=== PATIENT | female | born 1990 | race Caucasian/White ===

== ENCOUNTER 2017-05-31 21:31 | Emergency (ER) | payer BC ==
[~2017-05-31] VITALS: Ht 162.6 cm; Wt 73.2 kg
[~2017-05-31 21:31] MED LIST: AMOXICILLIN875 MG PO; ATARAX,VISTARIL25 MG PO; AZITHROMYCIN500 M1 PO; ENDOCET 5-3251 EACH PO; FLEXERIL10 MG PO; FLINTSTONES COM18 MG PO; IBUPROFEN800 MG PO; LEVAQUIN500 MG PO; LORTAB 5-500 T1 EACH PO; MACROBID100 MG PO; MUCINEX600 MG PO; Motrin PO; NOHOMEMEDS; PERCOCET 5/31 TABLET PO; SPRINTEC1 EACH PO; ZANTAC150 MG PO; ZOFRAN4 MG PO
[2017-05-31] MEDS ORDERED: NO HOME MEDS (23:54)
[2017-06-01] MEDS ORDERED: KEFLEX500 MG PO (00:13)
[2017-06-01] MEDS ORDERED: KENALOG,ARISTOC80 G1 TP (00:13)
[2017-06-01 00:23] VITALS: BP 138/97
== END 2017-06-01 00:24 | disposition home or self-care (01) ==
LOC: EME 21:31
DX: L03.111 Cellulitis of right axilla (principal); W57.XXXA Bitten or stung by nonvenomous insect and other nonvenomous arthropods, initial encounter
CPT/HCPCS: 99281; 99283

== ENCOUNTER 2017-10-16 20:35 | Emergency (ER) | payer BC, OTHER ==
[~2017-10-16] VITALS: Ht 162.6 cm; Wt 84.5 kg
[~2017-10-16 20:35] MED LIST changes: +KEFLEX500 MG PO; +KENALOG,ARISTOC80 G1 TP; +NO HOME MEDS
[2017-10-16] MEDS ORDERED: [UNRECOGNIZED DRUG - SUPPLY] MC (23:06)
[2017-10-16] MEDS ORDERED: COMPRESSION TH1 EACH MC (23:08)
[2017-10-16 23:10] VITALS: BP 116/77
== END 2017-10-16 23:13 | disposition home or self-care (01) ==
LOC: EME 20:35
DX: M79.605 Pain in left leg (principal); O26.892 Other specified pregnancy related conditions, second trimester; J45.909 Unspecified asthma, uncomplicated; Z87.442 Personal history of urinary calculi; G43.909 Migraine, unspecified, not intractable, without status migrainosus; Z88.0 Allergy status to penicillin; Z88.8 Allergy status to other drugs, medicaments and biological substances
CPT/HCPCS: 93971; 99281; 99284

== ENCOUNTER 2017-12-30 16:11 | Outpatient (CLI) | payer BC, OTHER ==
[~2017-12-30] VITALS: Ht 162.6 cm; Wt 89.1 kg
[~2017-12-30 16:11] MED LIST changes: +COMPRESSION TH1 EACH MC; +[UNRECOGNIZED DRUG - SUPPLY] MC
[2017-12-30 16:22] VITALS: BP 131/72
[2017-12-30] MEDS ORDERED: PRENATAL TABLE1 EAC3 PO (17:03)
[2017-12-30 18:26] LABS: SOURCE URINE
[2017-12-30 18:44] LABS: APPEARANCE CLEAR ((CLEAR)); BILIRUBIN NEGATIVE; BLOOD NEGATIVE; COLOR YELLOW ((YELLOW)); GLUCOSE (STRIP) NEGATIVE; KETONES NEGATIVE; LEUKOCYTES SMALL; NITRITE NEGATIVE; PROTEIN (STRIP) NEGATIVE; SPECIFIC GRAVITY 1.011 (1.000-1.030); UROBILINOGEN 0.2 MG/DL (0.2-1.0)
[2017-12-30 18:54] LABS: BACTERIA RARE /HPF; EPITHELIAL CELLS 1+ /HPF; MUCUS TRACE /LPF; RED BLOOD CELLS 0-5 /HPF (0-5); UCUL ADDED? NO; WHITE BLOOD CELLS 0-5 /HPF (0-5)
[2017-12-30 19:49] VITALS: BP 119/68
[2017-12-31 12:26] LABS: CHLAMYDIA TRACHOMATIS NEGATIVE; NEISSERIA GONORRHOEAE NEGATIVE
== END 2017-12-30 21:15 | disposition home or self-care (01) ==
LOC: LDRP-OP 16:11 → 2WEST 16:12
PROVIDERS: Nurse Practitioner
DX: O47.03 False labor before 37 completed weeks of gestation, third trimester (principal); Z3A.28 28 weeks gestation of pregnancy; Z87.891 Personal history of nicotine dependence
CPT/HCPCS: 59025; 81003; 87491; 87591; G0378; J7120

== ENCOUNTER 2018-01-26 16:05 | Outpatient (CLI) | payer BC, OTHER ==
[~2018-01-26] VITALS: Ht 162.6 cm; Wt 91.6 kg
[~2018-01-26 16:05] MED LIST changes: +PRENATAL TABLE1 EAC3 PO
[2018-01-26 16:19] VITALS: BP 118/61
[2018-01-26 17:11] LABS: SOURCE SWAB
[2018-01-26 20:16] LABS: CANDIDA DNA PROBE NEGATIVE; GARDNERELLA DNA PROBE POSITIVE; TRICHOMONAS DNA PROBE NEGATIVE
== END 2018-01-26 17:09 | disposition home or self-care (01) ==
LOC: LDRP-OP 16:05 → 2WEST 16:06 → LDRP-OP 04-21 22:07
PROVIDERS: Midwife; Obstetrics & Gynecology
DX: O99.89 Other specified diseases and conditions complicating pregnancy, childbirth and the puerperium (principal); N89.8 Other specified noninflammatory disorders of vagina; Q62.8 Other congenital malformations of ureter; O99.213 Obesity complicating pregnancy, third trimester; O99.013 Anemia complicating pregnancy, third trimester; Z3A.32 32 weeks gestation of pregnancy
CPT/HCPCS: 59025; 87480; 87491; 87510; 87591; 87660; G0378

== ENCOUNTER 2018-03-01 03:58 | Outpatient (CLI) | payer BC, OTHER ==
[~2018-03-01] VITALS: Ht 162.6 cm; Wt 94.8 kg
[2018-03-01 04:20] VITALS: BP 130/90
[2018-03-01 04:31] VITALS: BP 109/55
[2018-03-01] MEDS ORDERED: PRENATAL 19 CH1 EAC1 PO (04:46)
[2018-03-01 07:33] VITALS: BP 127/68
== END 2018-03-01 08:30 | disposition home or self-care (01) ==
LOC: LDRP-OP 03:58 → 2WEST 03:59 → LDRP-OP 04-21 17:31
DX: O47.1 False labor at or after 37 completed weeks of gestation (principal); O99.013 Anemia complicating pregnancy, third trimester; D64.9 Anemia, unspecified; Z3A.37 37 weeks gestation of pregnancy
CPT/HCPCS: 59025; G0378

== ENCOUNTER 2018-03-04 23:54 | Emergency (ER) | payer BC, OTHER ==
[~2018-03-04] VITALS: Ht 162.6 cm; Wt 97.7 kg
[~2018-03-04 23:54] MED LIST changes: +PRENATAL 19 CH1 EAC1 PO
[2018-03-05 00:34] LABS: HEMATOCRIT 29.6 % (36.0-46.0); HEMOGLOBIN 9.5 G/DL (11.9-15.5); MCH 24.7 PG (29.0-34.0); MCHC 32.1 G/DL (30.0-36.0); MCV 77.1 FL (83-99); PLATELET COUNT 262 K/uL (156-360); RBC DIS.WIDTH-CV 14.5 % (11.8-14.6); RBC DIS.WIDTH-SD 40.1 % (39-53); RED BLOOD COUNT 3.84 M/uL (3.80-5.20); WHITE BLOOD COUNT 11.1 K/uL (4.1-10.2)
[2018-03-05 00:51] LABS: CHLORIDE 109 mEq/L (99-109); POTASSIUM 3.8 mEq/L (3.7-5.4); SODIUM 138 mEq/L (136-147)
[2018-03-05 00:53] LABS: GLUCOSE 86 mg/dL (70-99)
[2018-03-05 00:57] LABS: CREATININE 0.6 mg/dL (0.6-1.3); GFR ESTIMATE (CALCULATED) > 59 mL/min/
[2018-03-05 00:58] LABS: UREA NITROGEN (BUN) 6 mg/dL (9-23)
[2018-03-05] MEDS ORDERED: TESSALON PERLE100 MG PO (02:31)
[2018-03-05 02:54] VITALS: BP 129/67
== END 2018-03-05 02:54 | disposition home or self-care (01) ==
LOC: EME 23:54
DX: J01.90 Acute sinusitis, unspecified (principal); J06.9 Acute upper respiratory infection, unspecified; Z87.442 Personal history of urinary calculi; J45.909 Unspecified asthma, uncomplicated; Z87.891 Personal history of nicotine dependence; Z88.0 Allergy status to penicillin
CPT/HCPCS: 71046; 80048; 85027; 94640 76

== ENCOUNTER 2018-03-17 06:59 | Inpatient (IN) | payer BC, OTHER ==
[~2018-03-17] VITALS: Ht 162.6 cm; Wt 97.3 kg
[2018-03-17] VITALS (18 sets, daily range): BP systolic 121–170; BP diastolic 63–89
[~2018-03-17 06:59] MED LIST changes: +TESSALON PERLE100 MG PO
[2018-03-17 09:12] LABS: BASOPHIL (%) 0.1 % (0-1); EOSINOPHIL (%) 0.9 % (0-5); EOSINOPHIL COUNT 0.1 K/uL (0-0.3); HEMATOCRIT 30.2 % (36.0-46.0); HEMOGLOBIN 9.9 G/DL (11.9-15.5); IMMATURE GRANULOCYTE (%) 0.2 % (0.0-0.7); LYMPHOCYTE (%) 13.9 % (15-42); LYMPHOCYTE COUNT 1.1 K/uL (1.0-2.8); MCH 24.9 PG (29.0-34.0); MCHC 32.8 G/DL (30.0-36.0); MCV 75.9 FL (83-99); MONOCYTE (%) 10.1 % (3-12); MONOCYTE COUNT 0.8 K/uL (0-0.8); NEUTROPHIL (%) 74.8 % (45-76); PLATELET COUNT 274 K/uL (156-360); RBC DIS.WIDTH-SD 41.1 % (39-53); RED BLOOD COUNT 3.98 M/uL (3.80-5.20); WHITE BLOOD COUNT 8.1 K/uL (4.1-10.2)
[2018-03-17 10:16] LABS: AMPHETAMINE NEGATIVE (500 ng/mL); BARBITURATES NEGATIVE (200 ng/mL); BENZODIAZEPINES NEGATIVE (150 ng/mL); BUPRENORPHINE NEGATIVE (10 ng/mL); COCAINE NEGATIVE (150 ng/mL); METHADONE NEGATIVE (200 ng/mL); METHAMPHETAMINE NEGATIVE (500 ng/mL); OPIATES (MORPHINE) NEGATIVE (100 ng/mL); OXYCODONE NEGATIVE (100 ng/mL); PHENCYCLIDINE NEGATIVE (25 ng/mL); PROPOXYPHENE NEGATIVE (300 ng/mL); THC CANNABINOIDS NEGATIVE (50 ng/mL); TRICYCLIC ANTIDEPRESSANTS NEGATIVE (300 ng/mL)
[2018-03-18] VITALS (21 sets, daily range): BP systolic 118–168; BP diastolic 60–92
[2018-03-18] MEDS ORDERED: IBUPROFEN800 MG PO (11:40)
[2018-03-19 07:15] VITALS: BP 133/68
[2018-03-19 16:15] VITALS: BP 144/75
[2018-03-19 22:27] VITALS: BP 193/79
[2018-03-19 22:28] VITALS: BP 150/74
[2018-03-20 08:16] VITALS: BP 143/83
== END 2018-03-20 12:12 | disposition home or self-care (01) | DRG 775 ==
LOC: LDRP-OP → 2WEST 07:00 → LDRP-OP 15:43 → 2WEST 03-18 11:16 → LDRP-OP 04-21 08:50
PROVIDERS: Advanced Practice Midwife
DX: O99.824 Streptococcus B carrier state complicating childbirth (principal); Z3A.39 39 weeks gestation of pregnancy; Z37.0 Single live birth; O99.214 Obesity complicating childbirth; E66.9 Obesity, unspecified; O99.354 Diseases of the nervous system complicating childbirth; G43.909 Migraine, unspecified, not intractable, without status migrainosus; O99.02 Anemia complicating childbirth; D64.9 Anemia, unspecified; Z68.36 Body mass index [BMI] 36.0-36.9, adult
CPT/HCPCS: 85025; G0378; J0595; J2540; J7120